=== PATIENT | female | born 1980 | race Hispanic/Latino ===

== ENCOUNTER 2019-05-17 06:49 | Day surgery (SDC) | payer SELFPAY ==
[2019-05-15 14:11] LABS: Absolute Lymphocytes (CBC) 2.2 K/uL (0.7-4.9); Basophils % 0.7 % (0-1.3); Hematocrit 41.6 % (36.0-45.0); Lymphocytes % 27.5 % (15.3-44.8); MPV 10.2 fL (7.6-11.3); RBC Red Blood Cell Count 4.76 M/uL (3.86-4.86)
[2019-05-15 14:33] LABS: Potassium 4.3 mmol/L (3.5-5.1)
--- OUTSIDE RECORDS SUMMARY | 2019-05-17 06:53 | XMS REPORT ---
:1980 [facility] Address [address] [place] [address] Dr. Myrick [address] [place] [id number] Care Team Providers Name Role Phone Unavailable Unavailable Unavailable Problems This patient has no known problems. Allergies, Adverse Reactions, Alerts This patient has no known allergies or adverse reactions. Medications This patient has no known medications.
[2019-05-17 07:13] LABS: Specific Gravity >= 1.030 (1.005-1.030)
[2019-05-17] MEDS ORDERED: Ringers Lactate 1,000 ML IV ONE (07:20)
[2019-05-17] MEDS ORDERED: CEFAZOLIN/SWI 1gm 1 GM/10 ML SYR ONE (07:21)
[2019-05-17] MEDS ORDERED: MIDAZOLAM HCL 2 MG/2 ML INJ ONE (07:32)
[2019-05-17] MEDS ORDERED: FENTANYL CITR 100 MCG/2 ML ONE (07:37)
[2019-05-17] MEDS ORDERED: PROPOFOL 200 MG/20 ML VIAL IV ONE (07:38)
[2019-05-17] MEDS ORDERED: LIDOCAINE 1% MPF 5 ML VIAL ONE (07:38)
[2019-05-17] MEDS ORDERED: ONDANSETRON 4 MG/2 ML VIAL ONE (08:34)
[2019-05-17] MEDS ORDERED: MEPERIDINE HCL 25 MG/0.5 ML ONE (09:14)
--- NOTE | 2019-06-09 22:15 | OP ---
Date of Procedure: 05/17/2019 Surgeon: Mario Cook MD Preoperative Diagnosis: Infected right groin subcutaneous mass with abscess. Postoperative Diagnosis: Infected right groin subcutaneous mass with abscess. Procedure: Excisional biopsy of infected right groin mass with drainage of an abscess. Anesthesia: General plus local. Indications: This is the case of a female who comes to us with a lump on the right groin with cellulitis and fluctuance present. She felt a lump in that area before. She has been having __ before. At this time, it did not get better, so she comes to the office for excision and dr diggs. Benefits, alternatives, and risks of excision were fully explained to the patient, which inc lude but are not limited to infection, bleeding, damage to adjacent structures, anesthesia complicati on, recurrence, [place], and even . She also understands this may not relieve any symptoms. She naima ht need more than one surgical intervention. She understood. Signed the consent. Description Of Procedure: Patient was brought to the operating room, placed in supine position. Ane sthesia was done without complication. Right groin was prepped and draped in a sterile fashion. A t perla-out was called. The right groin area was prepped and draped in a sterile fashion. After that, w e went to the that ak and the patient did in the holding room, make an incision in that area. We hav e an inflammatory mass with an abscess, so we removed all that area absolutely clean and then packed the area with wet-to-dry dressing. Cultures were obtained. The patient tolerated the procedure well. The patient was sent to recovery in stable condition. PRITEO/ARNOLD Voice ID: [id number] Report ID: [id number]
--- NOTE | 2019-06-09 22:16 | DS ---
Date of Discharge: 05/17/2019 Diagnosis: Infected mass with abscess, right groin area. Procedure: Excisional biopsy of right groin infected mass with incision and drainage of an abscess. Disposition: Home. Activity: As tolerated. No heavy lifting. Followup: With my office in 1 week. Call for appointment at [phone]. Wet-to-dry dressing with nor mal saline. Discharge Medications: For medications, see orders. PRIETO/ARNOLD Voice ID: [id number] Report ID: [id number]
== END 2019-05-17 10:10 | disposition home or self-care (01) ==
LOC: OR 06:49
PROVIDERS: ATTEND Surgery
PROC: 0JBC0ZZ Excision of Pelvic Region Subcutaneous Tissue and Fascia, Open Approach (ICD-10-PCS; principal; 2019-05-17 07:30)
DX: R22.2 Localized swelling, mass and lump, trunk (principal); L02.214 Cutaneous abscess of groin
CPT/HCPCS: 36415; 80048; 81025; 85025; 87070; 87075; 87205; 88304; J0690; J2175; J2250; J2405; J2704; J3010

== ENCOUNTER 2019-10-07 20:09 | Emergency (ER) | payer SELFPAY ==
--- OUTSIDE RECORDS SUMMARY | 2019-10-07 20:11 | XMS REPORT ---
:1980 [facility] [address] [place] [address] Dr. Myrick [address] [place] [id number] Care Team Providers Name Role Phone Unavailable Unavailable Unavailable Problems This patient has no known problems. Allergies, Adverse Reactions, Alerts This patient has no known allergies or adverse reactions. Medications This patient has no known medications.
[2019-10-07 21:22] LABS: Urine Blood TRACE (NEG); Urine Glucose NEGATIVE (NEG); Urine Protein NEGATIVE (NEG); Urine Specific Gravity 1.015 (1.005-1.030); Urine pH 7.5 (5.0-7.0)
[2019-10-07] MEDS ORDERED: DIAZEPAM 5 MG TABLET ONE (21:35)
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
[2019-10-07 23:28] VITALS: TEMP 97.8; O2SAT 100
[2019-10-07 23:30] VITALS: BP 109/67
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
== END 2019-10-07 22:24 | disposition home or self-care (01) ==
LOC: ER 20:09
DX: S16.1XXA Strain of muscle, fascia and tendon at neck level, initial encounter (principal); S29.012A Strain of muscle and tendon of back wall of thorax, initial encounter; V49.9XXA Car occupant (driver) (passenger) injured in unspecified traffic accident, initial encounter; Z88.6 Allergy status to analgesic agent
CPT/HCPCS: 70450; 72125; 72128; 81003; 81025; 99284